=== PATIENT | male | born 1945 | race Caucasian/White ===

== ENCOUNTER 2020-12-11 23:33 | Emergency (ER) | payer OTHER, MEDICARE ==
[~2020-12-11] VITALS: Ht 182.9 cm; Wt 90.7 kg
[2020-12-11 23:43] VITALS: BP_SYST 145
[2020-12-12] MEDS ORDERED: LIDOCAINE 1%, 20 ML MDV 20 ML ONE (00:10)
[2020-12-12] MEDS ORDERED: BACITRACIN 1 GM OINT TP ONE (01:02)
[2020-12-12 01:16] VITALS: BP_SYST 132
== END 2020-12-12 01:16 | disposition home or self-care (01) ==
LOC: SED 23:33
DX: S61.216A Laceration without foreign body of right little finger without damage to nail, initial encounter (principal); I10 Essential (primary) hypertension; W18.39XA Other fall on same level, initial encounter; Y93.89 Activity, other specified; Y92.89 Other specified places as the place of occurrence of the external cause; Y99.8 Other external cause status
CPT/HCPCS: 12002; 99282; J2001